=== PATIENT | male | born 1985 | race Caucasian/White ===

== ENCOUNTER 2017-07-06 05:12 | Emergency (ER) | payer OTHER ==
[~2017-07-06] VITALS: Ht 182.9 cm; Wt 72.6 kg
[~2017-07-06 05:12] MED LIST: AFRIN3 ML NS; ANEXSIA 5/325 M1 TA1 PO; AUGMENTIN875 M1 PO; FLEXERIL PO; FLOMAX0.4 M1 PO; IBUPROFEN PO; LOMOTIL TABLET1 TAB PO; MOBIC PO; NO MEDICATIONS; PERCOCET 5-3251 TAB PO; PHENERGAN PO; PHENERGAN25 M1 PO; PHENERGAN25 MG PO; TYLENOL #3 PO; VICODIN 5/500 T1 TAB PO; VOLTAREN50 MG PO
[2017-07-06] MEDS ORDERED: NO MEDICATIONS (05:18)
== END 2017-07-06 06:23 | disposition home or self-care (01) ==
LOC: SED 05:12
DX: S61.052A Open bite of left thumb without damage to nail, initial encounter (principal); L08.9 Local infection of the skin and subcutaneous tissue, unspecified; W54.0XXA Bitten by dog, initial encounter; Y92.9 Unspecified place or not applicable; F17.200 Nicotine dependence, unspecified, uncomplicated; Z23 Encounter for immunization
CPT/HCPCS: 90471; 90715; 99283